=== PATIENT | female | born 1945 | race Caucasian/White ===

== ENCOUNTER → 2022-10-20 12:59 | Outpatient (CLI) | payer MEDICARE, SELFPAY ==
--- NOTE | ~2022-10-20 | MM_ITS ---
EXAMINATION: MM screening daisy BI w clarence HISTORY: Screening mammogram TECHNIQUE: Craniocaudal and mediolateral oblique 3-D tomosynthesis images were obtained and synthetic 2-D images were generated. CAD analysis was submitted and interpreted. COMPARISON: 11/15/2019 diagnostic bilateral mammogram and complete bilateral breast ultrasound 4 bilateral screening mammogram BREAST PARENCHYMAL COMPOSITION: There are scattered areas of fibroglandular density. FINDINGS: Stable mild fibroglandular asymmetry. Stable benign appearing circumscribed approximately 4 .3 mm opacity is noted overlying the left axillary tail on MLO view, unchanged since 11/15/2019. There is no evidence of suspicious mass, calcification, or architectural distortion to suggest malignancy in either breast. There has been no suspicious interval change. IMPRESSION: 1. No mammographic evidence of malignancy. 2. Recommend routine screening mammography in one year. BI-RADS Category 2: Benign finding(s). Reviewed, dictated and finalized at location A. GER [employer]GY
== END ==
PROVIDERS: PCP Family Medicine; Visit Provider Obstetrics & Gynecology
DX: Z12.31 Encounter for screening mammogram for malignant neoplasm of breast (principal)
CPT/HCPCS: 77063; 77067

== ENCOUNTER 2023-12-30 15:43 | Outpatient (CLI) | payer MEDICARE, SELFPAY ==
--- NOTE | ~2023-12-30 | MR_ITS ---
EXAMINATION: MR lumbar spine wo con DATE: 12/30/2023 16:54 INDICATION: Degeneration of lumbar intervertebral discs. Back pain. TECHNIQUE: Magnetic resonance imaging (MRI) of the lumbar spine was performed without intravenous con trast. Sequences included sagittal T2-weighted FSE, sagittal T2-weighted FS FSE, sagittal T1-weighted FSE, and axial T2-weighted FSE. COMPARISON: None FINDINGS: Bone alignment is normal. Vertebral body heights are normal. There is severely decreased di sc height at L5-S1. The distal spinal cord signal intensity is normal. The conus medullaris is at L1. The following disc levels are specifically discussed: L1-L2: There is a central protrusion. There is mild bilateral facet joint osteoarthritis. There is no neural foraminal stenosis. There is mild central canal stenosis. L2-L3: The disc is bulging. There is moderate right and mild left facet joint osteoarthritis. There i s mild bilateral neural foraminal stenosis. There is mild central canal stenosis. L3-L4: The disc is bulging and has an annular fissure. There is moderate right and mild left facet vineet int osteoarthritis. There is mild bilateral neural foraminal stenosis. There is mild central canal st enosis. L4-L5: The disc is bulging and has an annular fissure. There is moderate right and severe left facet joint osteoarthritis. There is mild bilateral neural foraminal stenosis. There is mild central canal stenosis. L5-S1: The disc is bulging. There is severe bilateral facet joint osteoarthritis. There is mild right and moderate left neural foraminal stenosis. There is mild central canal stenosis. IMPRESSION: 1. Severe lower lumbar spondylosis. Reviewed, dictated and finalized at location E. CARPENTER
== END 2023-12-30 15:44 | disposition home or self-care (01) ==
LOC: ANHIMG 15:44
PROVIDERS: PCP Family Medicine; Visit Provider Family Medicine
DX: M43.06 Spondylolysis, lumbar region (principal); M51.36 Other intervertebral disc degeneration, lumbar region
CPT/HCPCS: 72148

== ENCOUNTER 2024-02-10 14:45 | Outpatient (RCR) | payer MEDICARE, SELFPAY ==
--- NOTE | 2024-02-01 11:53 | OPREHPOC ---
Outpatient Therapy Plan of Care This is a Multidisciplinary Plan of Care that may contain components documented by all disciplines (PT, OT, and ST.) PT Problem 1 PT Problem #1 Knowledge Deficit PT Goal 1 Goal Pt to be IND with issued HEP Target Visit 8 PT Problem 2 PT Problem #2 Pain PT Goal 1 Goal Pt to report back pain no greater than 4/10 in the last week. Target Visit 8 PT Goal 2 Goal Pt to report 75% improvement in overall symptoms. Target Visit 8 PT Problem 3 PT Problem #3 Impaired Functional Mobil PT Goal 1 Goal Pt to report being able to do dishes without needing to take a rest break. Target Visit 8 PT Goal 2 Goal Pt to demonstrate a 20lb lift and carry from ground level without compensations. Target Visit 8
--- NOTE | 2024-02-01 11:53 | PTOPEVAL1 ---
Assessment and note entered by Kassy Shukla, PT, DPT Evaluation Information Assessment Status Evaluation Diagnosis low back pain Subjective Information Pt states she had back pain starting about 4 months ago. She states she fell in the bathroom and landed and hit her mid back. She states she fell again a few weeks after this. She states since this fall her entire L leg will go numb and shake. She states this causes her to become really week, she states a few months ago she had a 3 week stent where she did not get out of bed. She reports resting pain as 7/10 and pain at the worst is 10/10. She states she has a lot going on right now, and is very stressed about both hers and her husbands health. Reported Pain Level Pain Score 7: Self Report Assessment PT Clinical Summary Naomy presents to therapy today for her initial evaluation with a diagnosis of low back pain. She demonstrates poor posture, decreased awareness of proper body mechanics, and decreased spinal mobility. She notes tenderness to palpation in her L piriformis and along her thoracic paraspinals. She also demonstrates decreased hip and core strength. Skilled therapy services are indicated to address the deficits noted above, to manage pain, and to return to PLOF. Plan of Care Interventions Electrical Stimulation,Gait Training,Hot Pack/Cold Pack,Manual Therapy,Neuro Re-education,Patient/ Caregiver Educati,Therapeutic Activities, Therapeutic Exercise PT Services Indicated Yes Treatment Frequency and 2x/wk for 8 visits Duration These treatments will address the objective and functional deficits as defined above. The patient will be advanced safely and appropriately in order for the patient to progress towards his/her prior level of function. Additional exercises will be introduced and as well as a comprehensive home exercise program upon discharge, if needed, ?to ensure carryover of functional gains achieved in the clinic. This treatment plan has been reviewed and agreement upon by the patient.
--- NOTE | 2024-02-17 11:12 | PTOPDC ---
Assessment and note entered by Kassy Shukla, PT, DPT Evaluation Information Assessment Status Discharge - Pt Not Present Diagnosis low back pain Subjective Information Pt called and cancelled all of her remaining appointments d/t a fall with a broken wrist and nose. She will need a new order from her doctor prior to returning to therapy. Assessment PT Clinical Summary Naomy completed 3 visits of skilled therapy from 08/16 to 02/10/24. She will be discharged at this time and will need a new order prior to continuing .
== END 2024-02-17 11:24 | disposition home or self-care (01) ==
LOC: ANHGOSHPT 14:45
PROVIDERS: PCP Family Medicine; Visit Provider Orthopaedic Surgery
DX: M54.50 Low back pain, unspecified (principal)
CPT/HCPCS: 97014; 97110; 97112; 97161; 97530; 99199; G0283

== ENCOUNTER 2024-02-12 14:14 | Emergency (ER) | payer MEDICARE, SELFPAY ==
--- NOTE | ~2024-02-12 | CT_ITS ---
EXAMINATION: CT facial & cervical spine wo DATE: 02/12/2024 14:47 INDICATION: Head injury. TECHNIQUE: Computed tomography (CT) of the maxillofacial region and cervical spine was performed with out intravenous contrast. Automated exposure control and iterative reconstruction technique were empl oyed. The dose-length product was 150.92 mGy-cm. COMPARISON: None FINDINGS: MAXILLOFACIAL CT: There are likely changes of ocular lens replacement surgeries. There are fractures of left nasal bone and left nasal process of maxilla. There is leftward deviation of the nasal septum. There is mild mu cosal thickening in the ethmoid sinuses. The mastoid air cells are normal. CERVICAL SPINE CT: There is 5 degrees dextrocurvature of cervicothoracic spine. There is mild chronic anterior wedging o f T1 vertebral body. There are changes of anterior fusion procedure from C5 to C7 with healed interbo dy bone graft. Intervertebral disc heights are normal. The following disc levels are specifically dis cussed: C2-C3: There is no uncovertebral joint osteoarthritis. There is mild right and severe left facet join t osteoarthritis. There is no neural foraminal stenosis. There is no central canal stenosis. C3-C4: There is mild right uncovertebral joint osteoarthritis. There is moderate right and severe lef t facet joint osteoarthritis. There is mild left neural foraminal stenosis. There is mild central can al stenosis. C4-C5: There is no uncovertebral joint osteoarthritis. There is mild right and moderate left facet vineet int osteoarthritis. There is no neural foraminal stenosis. There is mild central canal stenosis. C5-C6: There is no uncovertebral joint hypertrophy. There is no facet joint osteoarthritis. There is no neural foraminal stenosis. There is no central canal stenosis. C6-C7: There is severe right and moderate left uncovertebral joint hypertrophy. There is no facet zamzam nt hypertrophy. There is moderate right and mild left neural foraminal stenosis. There is mild centra l canal stenosis. C7-T1: There is no uncovertebral joint osteoarthritis. There is severe bilateral facet joint osteoart hritis. There is mild bilateral neural foraminal stenosis. There is no central canal stenosis. IMPRESSION: 1. Fractures of left nasal bone and left nasal process of maxilla. 2. Mild cervical spondylosis. 3. Anterior fusion procedure from C5 to C7. Reviewed, dictated and finalized at location E.
--- NOTE | ~2024-02-12 | XR_ITS ---
EXAMINATION: XR shoulder RT min 2V DATE: 02/12/2024 14:53 INDICATION: Right shoulder injury. Fall. TECHNIQUE: 4 views of right shoulder were obtained. COMPARISON: None. FINDINGS: Bone alignment is normal. No fracture. There is severe osteoarthritis of glenohumeral joint and mild osteoarthritis of acromioclavicular joint. There is a loose body in glenohumeral joint. Med maria alejandra sternotomy wires and mediastinal surgical clips are seen, likely from prior coronary artery bypas s grafting. IMPRESSION: 1. Severe right glenohumeral joint osteoarthritis. 2. Right glenohumeral joint loose body. Reviewed, dictated and finalized at location E.
--- NOTE | ~2024-02-12 | CT_ITS ---
EXAMINATION: CT brain wo con DATE: 02/12/2024 14:46 INDICATION: Head injury. TECHNIQUE: Computed tomography (CT) of the head was performed without intravenous contrast. The mA wa s adjusted according to patient size. Iterative reconstruction technique was employed. The dose-lengt h product was 605.33 mGy-cm. COMPARISON: None FINDINGS: There is no intracranial hemorrhage, acute infarction, or abnormal intracranial mass lesion . The ventricles are normal in size. There is mild mucosal thickening in the paranasal sinuses. The m astoid air cells are normal. IMPRESSION: 1. Normal brain. Reviewed, dictated and finalized at location E. IMPRESSION: 1. Normal brain.
--- NOTE | ~2024-02-12 | XR_ITS ---
EXAMINATION: XR wrist LT min 3V DATE: 02/12/2024 14:54 INDICATION: Left wrist injury. Fall. TECHNIQUE: 5 views of left wrist were obtained. COMPARISON: None. FINDINGS: Bone alignment is normal. There is a fracture deformity of distal radius. There is 6 degree s palmar tilt of the distal articular surface. There is mild osteoarthritis of radiocarpal joint, tri scaphe joint, and first carpometacarpal joint. IMPRESSION: 1. Fracture deformity of distal radius, which may be old. 2. Mild polyarticular osteoarthritis. Reviewed, dictated and finalized at location E.
[2024-02-12 14:27] VITALS: BP 156/79; PULSE 61; RESP 18; TEMP 36.6; O2SAT 97
[2024-02-12] MEDS: TETANUS,DIPHTHERIA,AC PERTUSSIS ADULT (0.5 ML) BOOSTRIX IM (15:20)
--- NOTE | 2024-02-12 15:23 | PC.NURSE ---
11/05/2025 lot [id number]
[2024-02-12 15:51] VITALS: BP 125/82; PULSE 70; RESP 18; O2SAT 99
--- NOTE | 2024-02-12 18:51 | ED.FALL ---
HPI - Fall General Chief Complaint: Fall Stated Complaint: fall, wrist and nasal pain Time Seen by Provider: 02/12/24 15:03 History of Present Illness HPI Narrative: patient presenting here with mechanical fall, she was on a insight when she tripped and fell, she did hit her face, and she did hit her her left wrist when she put out to stop her fall. Denies any loss of consciousness. Related Data Home Medications Medication Instructions Recorded Confirmed alprazolam 0.5 mg tablet 0.5 mg PO DAILY 04/29/22 01/19/24 amlodipine 5 mg tablet 5 mg PO DAILY 04/29/22 01/19/24 aspirin 81 mg tablet,delayed 81 mg PO DAILY 04/29/22 01/19/24 release omeprazole 40 mg capsule,delayed 40 mg PO DAILY 04/29/22 01/19/24 release simvastatin 40 mg tablet 40 mg PO DAILY 04/29/22 01/19/24 metoprolol tartrate 50 mg tablet 25 mg PO BID 05/11/23 01/19/24 Allergies Allergy/AdvReac Type Severity Reaction Status Date / Time escitalopram Allergy Severe Unknown Verified 02/12/24 14:18 amoxicillin Allergy Intermediate Unknown Verified 02/12/24 14:18 clavulanic acid Allergy Mild SEVERE Verified 02/12/24 14:18 SWELLING Penicillins Allergy Mild SEVERE Verified 02/12/24 14:18 SWELLING meperidine Allergy Unknown Unknown Verified 02/12/24 14:18 sulfamethizole Allergy Unknown Swelling Verified 02/12/24 14:18 trimethoprim Allergy Unknown Unknown Verified 02/12/24 14:18 POTASSIUM CLAVULANATE Allergy Intermediate Rash Uncoded 01/19/24 09:38 Review of Systems Review of Systems: CONST: No fever. HEENT: tenderness/bruising to nasal bridge, abrasion to tip of nose C/V: No chest pain RESP: No cough GI: no nausea or vomiting : No dysuria. M/S: left wrist pain SKIN: [id number]. 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 History of rotator cuff surgery rt shoulder Family History Family History Sibling Cerebrovascular accident Family history of Alzheimer's disease Malignant neoplasm of prostate Mother Heart disease Hypertension Osteoporosis Breast cancer Social History Social History Smoking status: Never smoker Alcohol intake: never Substance use: never Substance use type: does not use Do You Feel Safe in your Home?: Yes Lack of Transportation: No Lack of Food: Never True Current Housing: I Have Housing Concerned About Future Housing: No Difficulty Paying Gas/Electric Bills: No Difficulty Paying for Meds: No Currently Unemployed: No Education: High School Diploma/GED Difficulty w/ Childcare or Family Care: No Living arrangements: other Additional living arrangements comments: Occupation/Education: retired Gender identity (if verbalized by the patient): Female Sexual Orientation (if Verbalized by the Patient): Straight or Heterosexual Exam Narrative: EXAMINATION OF ORGAN SYSTEMS/BODY AREAS: Constitutional: Vital signs per nursing GENERAL:[No acute distress, non-toxic appearing.] HEAD: Normal with no signs of head trauma. EYES: EOMI, conjunctiva normal ENT: tenderness/bruising to nasal bridge, abrasion to tip of nose LUNGS: Nonlabored breathing. HEART: [Regular rate and rhythm] ABD: [Soft], [nontender to palpation] EXT: Normal range of motion with some minimal tenderness to wrist; normal pulses. No scaphoid tenderness. SKIN: bruising to nose BRYAN
== END 2024-02-12 15:52 | disposition home or self-care (01) ==
LOC: ANHED 15:37
PROVIDERS: Emergency Provider Emergency Medicine; PCP Family Medicine
DX: S02.2XXA Fracture of nasal bones, initial encounter for closed fracture (principal); S52.502A Unspecified fracture of the lower end of left radius, initial encounter for closed fracture; Z23 Encounter for immunization; E78.00 Pure hypercholesterolemia, unspecified; I10 Essential (primary) hypertension; M19.032 Primary osteoarthritis, left wrist; M18.9 Osteoarthritis of first carpometacarpal joint, unspecified; F41.9 Anxiety disorder, unspecified; Z95.1 Presence of aortocoronary bypass graft; Z79.82 Long term (current) use of aspirin; W01.0XXA Fall on same level from slipping, tripping and stumbling without subsequent striking against object, initial encounter
CPT/HCPCS: 29125; 70450; 70486; 72125; 73030; 73110; 90471; 90715; 99284

== ENCOUNTER 2024-11-30 09:00 | Emergency (ER) | payer MEDICARE, SELFPAY ==
--- NOTE | 2024-11-30 09:08 | ED_ITS ---
HPI - URI/Sore Throat General Chief Complaint: Upper Respiratory Infection Stated Complaint: flu like symptoms Time Seen by Provider: 11/30/24 09:00 Source: patient Mode of arrival: ambulatory Limitations: no limitations History of Present Illness HPI Narrative: Patient is a 79-year-old female who presents with cough, fever, diarrhea and sore throat for 3 days. Patient does report diarrhea was only on Tuesday and has since resolved. Patient has not taken temperature at home. Patient states she has been increasing fluids including water and Gatorade. Patient is eating small frequent meals. Denies taking any medication for symptoms. Related Data Home Medications ?Medication ?Instructions ?Recorded ?Confirmed ?Last Taken ?Type alprazolam 0.5 mg tablet 0.5 mg PO DAILY 04/29/22 09/25/24 Unknown History amlodipine 5 mg tablet 5 mg PO DAILY 04/29/22 09/25/24 Unknown History aspirin 81 mg tablet,delayed 81 mg PO DAILY 04/29/22 09/25/24 Unknown History release omeprazole 40 mg capsule,delayed 40 mg PO DAILY 04/29/22 09/25/24 Unknown History release simvastatin 40 mg tablet 40 mg PO DAILY 04/29/22 09/25/24 Unknown History clopidogrel 75 mg tablet (Plavix) 75 mg PO DAILY 09/03/24 09/25/24 Unknown History Allergies Allergy/AdvReac Type Severity Reaction Status Date / Time escitalopram Allergy Severe Unknown Verified 11/30/24 09:22 amoxicillin Allergy Intermediate Unknown Verified 11/30/24 09:22 clavulanic acid Allergy Mild SEVERE Verified 11/30/24 09:22 SWELLING Penicillins Allergy Mild SEVERE Verified 11/30/24 09:22 SWELLING meperidine Allergy Unknown Unknown Verified 11/30/24 09:22 sulfamethizole Allergy Unknown Swelling Verified 11/30/24 09:22 trimethoprim Allergy Unknown Unknown Verified 11/30/24 09:22 POTASSIUM CLAVULANATE Allergy Intermediate Rash Uncoded 11/30/24 09:22 Review of Systems Review of Systems: All systems reviewed & are unremarkable except as noted in HPI and below Constitutional: Constitutional: Denies chills, Denies fatigue, Reports fever(s), Denies headache(s), Denies malaise and Denies weakness Eyes: Eyes: Denies blurry vision, Denies itchy eyes and Denies loss of vision ENT: Denies otalgia, Denies headache(s), Denies nasal congestion, Denies sinus pain and Reports sore throat Cardiovascular: Cardiovascular: Denies chest pain, Denies irregular heart rhythm and Denies dyspnea Respiratory: Respiratory: Reports cough and Denies dyspnea Gastrointestinal: Gastrointestinal: Denies abdominal pain, Reports diarrhea, Denies nausea and Denies vomiting Musculoskeletal: Musculoskeletal: Denies back pain, Denies myalgias and Denies arthralgias Integumentary/Breasts: Skin/Breast: Denies pruritus and Denies rash Neurologic: Denies headache(s), Denies loss of vision and Denies weakness Psychiatric: Psychiatric: Reports no additional psychiatric complaints Endocrine: Endocrine: Denies fatigue Allergic/Immunologic: Allergic/Immunologic: Denies itchy eyes PMFSH Past Medical History Medical History Screening mammogram, encounter for 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 Hypertension High cholesterol HSV-2 infection Arthritis Anxiety Surgical History Surgical History History of cervical spinal surgery 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 History of rotator cuff surgery rt shoulder History of back surgery ruptured disc Family History Family History Sibling Cerebrovascular accident Family history of Alzheimer's disease Malignant neoplasm of prostate Mother Heart disease Hypertension Osteoporosis Breast cancer Social History Social History Smoking status: Never smoker Alcohol intake: never Substance use: never Substance use type: does not use Do You Feel Safe in your Home?: Yes Lack of Transportation: YES Lack of Food: Never True Current Housing: I Have Housing Concerned About Future Housing: No Difficulty Paying Gas/Electric Bills: No Difficulty Paying for Meds: No Currently Unemployed: No Education: Trade/Vocational Certificate Difficulty w/ Childcare or Family Care: No Living arrangements: other Additional living arrangements comments: Occupation/Education: retired Gender identity (if verbalized by the patient): Female Sexual Orientation (if Verbalized by the Patient): Straight or Heterosexual Comments At time of signature, agree with nursing past medical, surgical, social and family history. There is no relevant family history pertinent to the presenting complaint. Exam Const: General: cooperative, healthy appearing, comfortable, no acute distress and well nourished Nutritional Appearance: well nourished Orientation/consciousness: patient oriented x3 Limitations: no limitations HENMT: Head: normal to inspection, normocephalic and atraumatic Ears: hearing grossly normal bilaterally, external ears normal, TM's normal bilaterally, EAC's normal and no periauricular adenopathy Face/Nose/Sinus: Normal external nose present, Abnormal mucous membranes and turbinates present erythematous bilateral and diffuse, normal facial exam, sinuses nontender and face symmetric Face and sinus: normal facial exam, sinuses nontender and face symmetric Mouth: Yes Normal oral and palatal mucosa present, Yes lip normal, Yes tongue normal, Yes Normal salivary glands and ducts present, Yes oropharynx normal and Yes moist mucous membranes Teeth and gingiva: dentition normal Throat: posterior oropharynx normal, tonsils normal and uvula midline Eyes: General: appearance normal, both eyes and all related structures Alignment and Position: alignment normal and position normal Periorbital: periorbital findings normal Eyelids: eyelids normal Pupils: Equal, round and reactive pupils present Neck: Neck: normal visual inspection, full ROM, no lymphadenopathy and supple Chest: Chest palpation & inspection: normal inspection of the chest and normal palpation of entire chest wall Resp: Effort & Inspection: normal respiratory effort and able to speak in complete sentences Auscultation: clear to auscultation bilaterally, no crackles, no rales, no rhonchi and no wheezes Cardio: Rate: regular rate Rhythm: regular rhythm Heart sounds: S1 normal heart sound present and S2 normal heart sound present GI: Inspection: normal to inspection Skin: General skin exam: normal color and no rashes or lesions noted Neuro: General: patient oriented x3 and moves all extremities Cranial nerves: Yes Equal, round and reactive pupils present Speech: normal speech Gait exam (Neuro): Normal gait present Extrem: General: normal to inspection, full ROM and no edema Psych: Appearance: grossly normal and well kempt Mental Status: mental status grossly normal Speech and movement: Normal speech and movement present Affect: normal affect Attitude: cooperative Thought process: Normal thought process present Course Course Emergency Course: Discharge instructions reviewed with patient, as well as provided in writing per nursing staff. The instructions also include specific and strict return/GO TO THE ER as well as f/u information. All questions have been answered, and the patient deny any further questions with discharge and discharge plan. Portions of this record may have been created with voice recognition software Level of Care: Express Care Visit Vital Signs Vital signs: Vital Signs Temperature 36.4 C L 11/30/24 09:13 Pulse Rate 67 11/30/24 09:13 Respiratory Rate 16 11/30/24 09:13 Blood Pressure 106/62 11/30/24 09:13 Pulse Oximetry 100 11/30/24 09:13 Temperature 36.4 C L 11/30/24 09:13 Pulse Rate 67 11/30/24 09:13 Respiratory Rate 16 11/30/24 09:13 Blood Pressure 106/62 11/30/24 09:13 Pulse Oximetry 100 11/30/24 09:13 Reviewed MDM - URI/Sore Throat MDM Narrative Medical decision making narrative: Pt well hydrated appearing, in no respiratory distress, hemodynamically stable. Recommend supportive care. The patient is stable at time of discharge the clinical impression was discussed and the patient was given the opportunity to ask questions, which were addressed as completely as possible given the information available at present. Anticipatory guidance and return to care precautions were discussed and the importance of primary care follow-up was stressed and encouraged. The patient voiced understanding of the plan, indications to return, and the need for follow-up. Differential diagnosis considered: [place] virus, strep pharyngitis, allergic rhinitis, upper respiratory tract infection, sinusitis, rhinosinusitis, nasopharyngitis. viral pharyngitis, otitis media, otitis externa, otitis effusion, foreign body, cerumen impaction, viral syndrome, and influenza.? Exam findings show no acute concerns or changes; patient is non-toxic appearing and is in no distress.? Patient is appropriate for outpatient treatment and follow- up.? Medical Records Attestation: I reviewed the patient's medical records. Lab Data Attestation: I reviewed the patient's lab results. Lab results narrative: COVID result neg in error. Patient was positive Labs: Lab Results 11/30/24 11/30/24 Range/Units 09:23 09:25 POC Influenza A Ag Negative (Negative) POC Influenza B Ag Positive (Negative) POC SARS CoV-2 Ag Negative (Negative) Discharge Plan Discharge Clinical Impression: Influenza, COVID Patient Disposition: Home, Self-Care Condition: Stable Instructions: Influenza (ED), COVID-19 (Coronavirus Disease 2019) (ED) Additional Instructions: Your rapid COVID test was positive today. You are also positive for influenza B The following recommendations have been made by the CDC and local Health Departments, regarding COVID-19: -wear a mask for 5 days, as long as your fever free for 24 hours you could return to work -Majority of mild to moderate cases can be treated at home, without hospitalization or prescription medications You do not need a negative test result to return to work/school, assuming the above recommendations have been met and you are not symptomatic. Treating symptoms for mild to moderate cases may include: -Alternate Tylenol and Motrin per package directions for fever or pain. -Antihistamine medication such as Benadryl/Zyrtec at night and Claritin/Barby during the day can help improve symptoms. -Use Flonase twice a day for 5 days then daily to help reduce the inflammation and dry up your sinuses. -You can also use Sudafed behind the pharmacy counter(12 or 24 hour). Be sure to drink plenty of water with these medications at least 8 ounces with every dose and it is important to drink 8 to 10 glasses of water per day. Water is a natural decongestant Take Motrin alternating with Tylenol for pain and fever alternating every 3 hours. 8 AM: Tylenol 11 AM: Ibuprofen 2 PM: Tylenol 5 PM: Ibuprofen 8 PM: Tylenol 11 PM: Ibuprofen 2 AM: Tylenol 5 AM: Ibuprofen Common Adult Symptoms: Fever/chills Cough Shortness of breath Fatigue, muscle aches Headache Loss of taste/smell Sore throat, congestion, runny nose GI symptoms (nausea, vomiting, diarrhea) Common Pediatric Symptoms Cough Fever GI symptoms (diarrhea, upset stomach, nausea, vomiting) Symptoms may differ in severity however, most cases do not require hospitalization. WHEN TO SEEK ER EVALUATION/TREATMENT: Severe/persistent shortness of breath or difficulty breathing Elevated, persistent fevers without resolution with fever-reducing medications Chest pain Extreme fatigue/lethargy Complications of pre-existing disease Patient Language: [place]ic Prescriptions: New benzonatate 100 mg capsule 100 mg PO BID PRN (Reason: cough) Qty: 14 0RF No Action clopidogrel [Plavix] 75 mg tablet 75 mg PO DAILY alprazolam 0.5 mg tablet 0.5 mg PO DAILY amlodipine 5 mg tablet 5 mg PO DAILY aspirin 81 mg tablet,delayed release (DR/EC) 81 mg PO DAILY omeprazole 40 mg capsule,delayed release(DR/EC) 40 mg PO DAILY simvastatin 40 mg tablet 40 mg PO DAILY Saline Mist 0.65 % aerosol,spray 2 spray intranasal QID 5 Days Qty: 44 0RF Follow-up/Referrals: Cj Feng DO [Primary Care Provider] - 3 Days Time of Disposition: 09:51
[2024-11-30 09:13] VITALS: BP 106/62; PULSE 67; RESP 16; TEMP 36.4; O2SAT 100
[2024-11-30 09:25] LABS: EDINFLUASCREEN Negative (Negative); EDINFLUBSCREEN Positive (Negative)
[2024-11-30 09:27] LABS: EDCOVIDSCREEN Negative (Negative)
== END 2024-11-30 10:02 | disposition home or self-care (01) ==
PROVIDERS: Emergency Provider Nurse Practitioner Family; PCP Family Medicine
DX: J10.1 Influenza due to other identified influenza virus with other respiratory manifestations (principal); U07.1 COVID-19; I10 Essential (primary) hypertension; E78.00 Pure hypercholesterolemia, unspecified; M19.90 Unspecified osteoarthritis, unspecified site; F41.9 Anxiety disorder, unspecified; I25.10 Atherosclerotic heart disease of native coronary artery without angina pectoris; Z95.1 Presence of aortocoronary bypass graft; Z79.82 Long term (current) use of aspirin; Z79.01 Long term (current) use of anticoagulants
CPT/HCPCS: 87426; 87804; 99213; G0463

== ENCOUNTER 2025-07-09 09:52 | Emergency (ER) | payer MEDICARE, SELFPAY ==
[2025-07-09 10:00] VITALS: BP 136/74; PULSE 72; RESP 16; TEMP 36.3; O2SAT 100
[2025-07-09 10:10] LABS: EDUAAPPEAR Clear; EDUABILI Negative (Negative); EDUABLOOD Negative (Negative); EDUACOLOR1 Yellow; EDUAGLUCOSE Negative (Negative); EDUAKETONE Negative (Negative); EDUALEUKO 1+ (Negative); EDUANITRATE Negative (Negative); EDUAPH 5.5; EDUAPROTEIN Negative (Negative); EDUASPGRAVITY 1.005; EDUAUROBILI 0.2
--- NOTE | 2025-07-09 10:25 | ED_ITS ---
HPI - Female Genitourinary General Chief complaint: Urogenital-Female Stated complaint: Uti Symptoms Time Seen by Provider: 07/09/25 10:05 Source: patient and RN notes reviewed Mode of arrival: ambulatory Limitations: no limitations History of Present Illness HPI Narrative: 79-year-old female presents Express Care complaining of urinary symptoms for 2-3 days. Patient reports having dysuria, increased frequency, hesitancy, body aches, headache. Patient denies any fevers, abdominal pain, chills, nausea, vomiting, diarrhea, or blood in her urine. Patient has not taken anything [id number] for symptoms. Patient has a history of CAD and hypertension. Related Data Home Medications ?Medication ?Instructions ?Recorded ?Confirmed ?Last Taken ?Type aspirin 81 mg tablet,delayed 81 mg PO DAILY 04/29/22 0 05/24/25 Unknown History release sodium chloride 0.65 % nasal spray 2 spray intranasal QID PRN 03/06/25 05/24/25 Unknown History aerosol (Saline Mist) Allergies Allergy/AdvReac Type Severity Reaction Status Date / Time escitalopram Allergy Severe Unknown Verified 07/09/25 10:11 amoxicillin Allergy Intermediate Unknown Verified 07/09/25 10:11 clavulanic acid Allergy Mild SEVERE Verified 07/09/25 10:11 SWELLING Penicillins Allergy Mild SEVERE Verified 07/09/25 10:11 SWELLING meperidine Allergy Unknown Unknown Verified 07/09/25 10:11 sulfamethizole Allergy Unknown Swelling Verified 07/09/25 10:11 trimethoprim Allergy Unknown Unknown Verified 07/09/25 10:11 POTASSIUM CLAVULANATE Allergy Intermediate Rash Uncoded 05/24/25 10:24 Review of Systems Review of Systems: CONSTITUTIONAL: Denies fever, chills, or sweats. Positive body aches. EYES: Denies visual changes, redness, or discharge. ENT: Denies rhinorrhea, congestion, sore throat, or otalgia. CARDIOVASCULAR: Denies chest pain, palpitations, or edema. RESPIRATORY: Denies cough or dyspnea. GASTROINTESTINAL: Denies abdominal pain, nausea, vomiting, or diarrhea. GENITOURINARY: Positive for dysuria, increased frequency, hesitancy. Negative for hematuria or vaginal bleeding. SKIN: Denies rash or itching. MUSCULOSKELETAL: Denies back pain, joint pain, or myalgia. NEUROLOGIC: Denies headache, numbness, or weakness. PSYCHIATRIC: Denies anxiety or depression. All other systems reviewed are negative, except as documented in HPI. 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 History of rotator cuff surgery rt shoulder History of back surgery ruptured disc Family History Family History Sibling Cerebrovascular accident Family history of Alzheimer's disease Malignant neoplasm of prostate Mother Heart disease Hypertension Osteoporosis Breast cancer Social History Social History Smoking status: Never smoker Alcohol intake: never Substance use: never Substance use type: does not use Do You Feel Safe in your Home?: Yes Lack of Transportation: YES Lack of Food: Never True Current Housing: I Have Housing Concerned About Future Housing: No Difficulty Paying Gas/Electric Bills: No Difficulty Paying for Meds: No Currently Unemployed: No Education: Trade/Vocational Certificate Difficulty w/ Childcare or Family Care: No Living arrangements: other Additional living arrangements comments: Occupation/Education: retired Gender identity (if verbalized by the patient): Female Sexual Orientation (if Verbalized by the Patient): Straight or Heterosexual Comments At the time of my signature, I reviewed and agree with the nursing past medical, surgical, social, and family history. There is no relevant family history pertinent to the patient complaint. Exam Narrative: GENERAL: This is a well-nourished, well-developed adult, in no apparent distress. They are non ill-appearing, nontoxic appearing. HEAD: normocephalic, atraumatic. EYES: Sclera clear/white. Vision is grossly intact. Conjunctiva normal bilaterally. Extraocular movements intact. EARS: External ears normal,Hearing grossly intact. NOSE: External nose normal THROAT: Mucous membranes moist NECK: Normal range of motion CARDIOVASCULAR: Regular rate and rhythm. Normal S1-S2. No clicks, gallops, rubs, murmurs. RESPIRATORY: Respiratory rate normal, respiratory effort nonlabored, no respiratory distress. Lung sounds clear to auscultation throughout. Lung sounds equal bilaterally. No adventitious lung sounds. GASTROINTESTINAL: Abdomen soft, flat, non-tender, nondistended. Bowel sounds are active. No hepato-splenomegaly, or palpable masses. No guarding. No rebound tenderness. SKIN: warm, Dry, intact with no suspicious lesions or rash, good texture and turgor. NEURO: awake, alert, and oriented to person, place and time. There were no obvious focal neurologic abnormalities. EXTREMITIES: No joint tenderness, effusion, or edema noted. BACK: Nontender without deformity. No CVA tenderness. Course Course Emergency Course: Portions of this record may have been created with voice recognition software Level of Care: Express Care Visit Vital Signs Vital signs: Vital Signs Temperature 97.3 F L 07/09/25 10:00 Pulse Rate 72 07/09/25 10:00 Respiratory Rate 16 07/09/25 10:00 Blood Pressure 136/74 07/09/25 10:00 Pulse Oximetry 100 07/09/25 10:00 Temperature 97.3 F L 07/09/25 10:00 Pulse Rate 72 07/09/25 10:00 Respiratory Rate 16 07/09/25 10:00 Blood Pressure 136/74 07/09/25 10:00 Pulse Oximetry 100 07/09/25 10:00 MDM - Female Genitourinary MDM Narrative Medical decision making narrative: Urine dipstick shows evidence of urinary tract infection. Urine culture pending. Patient has allergies to penicillins and sulfas. Patient is unsure if she can tolerate cephalosporins. Prescription levofloxacin sent to pharmacy. Discussed physical exam findings. Advised supportive measures and signs/symptoms to go to the ER. Pt is appropriate for outpt treatment and f/u. [id number]-patient called spoke to nurse requesting a new prescription as she is concerned for the potential side effects of levofloxacin. Patient would not elaborate according to RN about the side effects she was concerned about it is that she read side effects that was listed with the prescription. Prescription of Macrobid sent to pharmacy. Differential Diagnosis Differential diagnosis: Likely urinary tract infection, cystitis and other (Pyelonephritis) Lab Data Attestation: I reviewed the patient's lab results. Labs: Lab Results 07/09/25 Range/Units 10:01 POC Urine Color Yellow POC Urine Clarity Clear POC Urine pH 5.5 POC Ur Specif [place] 1.005 POC Urine Protein Negative (Negative) POC Ur Glucose (UA) Negative (Negative) POC Urine Ketones Negative (Negative) POC Urine Blood Negative (Negative) POC Urine Nitrite Negative (Negative) POC Urine Bilirubin Negative (Negative) POC Urine Urobilinogen 0.2 POC U Leukocyte Esteras 1+ (Negative) Discharge Plan Discharge Clinical Impression: Urinary tract infection Qualifiers: Urinary tract infection type: site unspecified Hematuria presence: without hematuria Qualified Code(s): N39.0 - Urinary tract infection, site not specified Patient Disposition: Home Condition: Stable Instructions: Antibiotic Form, Urinary Tract Infection in Women (ED) Additional Instructions: Take the antibiotic as prescribed The urine will be sent of for a culture to identify what type of bacteria is causing your infection. If the culture shows that the antibiotic will not get rid of your infection, you will be notified and a new antibiotic will be called in for you. Increase water intake you will need to follow up with your PCP 3-5 days. Go to the ER for any worsening symptoms, abdominal pain, fevers, nausea, vomiting, or any other concerns Patient Language: [place] Prescriptions: New levofloxacin 250 mg tablet 250 mg PO DAILY 3 Days Qty: 3 0RF nitrofurantoin monohyd/m-cryst [Macrobid] 100 mg capsule 100 mg PO Q12H 5 Days Qty: 10 0RF Rx Instructions: must administer with a meal/food No Action famotidine 20 mg tablet 20 mg PO QHS Qty: 90 3RF hyoscyamine sulfate [Levsin] 0.125 mg tablet 0.125 mg PO .every 6 hours PRN (Reason: atypical chest pain) Qty: 30 3RF amlodipine 5 mg tablet 5 mg PO DAILY Qty: 90 0RF aspirin 81 mg tablet,delayed release (DR/EC) 81 mg PO DAILY simvastatin 40 mg tablet 40 mg PO DAILY Qty: 90 3RF Saline Mist 0.65 % aerosol,spray 2 spray intranasal QID PRN omeprazole 40 mg capsule,delayed release(DR/EC) 40 mg PO DAILY Qty: 90 2RF alprazolam 0.25 mg tablet 0.25 mg PO DAILY Qty: 30 0RF Follow-up/Referrals: Cj Feng DO [Primary Care Provider, [facility]] Time of Disposition: 10:21
== END 2025-07-09 10:27 | disposition home or self-care (01) ==
PROVIDERS: PCP Family Medicine
DX: N39.0 Urinary tract infection, site not specified (principal); I25.10 Atherosclerotic heart disease of native coronary artery without angina pectoris; I10 Essential (primary) hypertension; E78.00 Pure hypercholesterolemia, unspecified; M19.90 Unspecified osteoarthritis, unspecified site; F41.9 Anxiety disorder, unspecified; Z95.1 Presence of aortocoronary bypass graft; Z79.82 Long term (current) use of aspirin
CPT/HCPCS: 81003; 87086; 99213; G0463